=== PATIENT | male | born 1965 | race Caucasian/White ===

== ENCOUNTER 2019-07-17 10:08 | Emergency (ER) | payer MEDICAID, OTHER ==
[~2019-07-17] VITALS: Ht 172.7 cm; Wt 77.1 kg
[2019-07-17] MEDS ORDERED: ONDANSETRON 4 MG/2 ML VIAL IM ONE ×2 (10:15→12:00)
[2019-07-17] MEDS ORDERED: HYDROMORPHONE 1 MG/1 ML DISP.SYRIN IM ONE ×2 (10:15→12:00)
[2019-07-17] MEDS ORDERED: ONDANSETRON 4 MG/2 ML VIAL ONE ×2 (10:22→13:10)
[2019-07-17] MEDS ORDERED: HYDROMORPHONE 2 MG/1 ML DISP.SYRIN ONE ×2 (10:22→13:10)
--- NOTE | 2019-07-17 12:04 | NUR ---
pt requesting the second round pain med be given later.
--- NOTE | 2019-07-17 13:25 | NUR ---
Patient discharged to home in stable conditon. Written and verbal after care instructions given. Patient verbalizes understanding of instructions.pt walks in steady gait. pt called for ride.
[2019-07-17 13:26] VITALS: BP 109/69
== END 2019-07-17 13:27 | disposition home or self-care (01) ==
LOC: ER 10:08
DX: M54.41 Lumbago with sciatica, right side (principal)
CPT/HCPCS: 96372 ×4; 99283; J1170 ×2; J2405 ×2; A4663